=== PATIENT | female | born 1965 | race Hispanic/Latino ===

== ENCOUNTER 2025-04-29 17:48 | Inpatient (IN) | payer OTHER ==
[~2025-04-29 17:48] MED LIST: Iopamidol-370 76% 500 ML MDV (1 ML CHARGE) ONE
[2025-04-29 19:50] LABS: #Basophils 0.03 10x3/uL (0.0-0.2); #Eosinophils 0.10 10x3/uL (0.0-0.7); #Monocytes 1.21 10x3/uL (0.11-0.59); #Neutrophils 5.93 10x3/uL (1.40-6.50); %Basophils 0.3 % (0.0-1.0); %Eosinophils 0.9 % (0.0-10.0); %Lymphocytes 32.0 % (21.0-51.0); %Monocytes 11.1 % (0.0-10.0); %Neutrophils 54.5 % (42.0-75.0); Hematocrit 42.2 % (36.0-47.0); Hemoglobin 14.0 g/dL (12.0-16.0); Mean Corpuscular Hemoglobin 29.6 pg (27.0-31.0); Mean Corpuscular Volume 89.2 fL (78.0-98.0); Platelet Count 336 10x3/uL (130-400); Red Blood Cell (RBC) Count 4.73 mill/uL (4.20-5.40); White Blood Cell (WBC) Count 10.88 10x3/uL (4.8-10.8)
[2025-04-29 20:03] LABS: INR-International Normal Ratio 1.1; PTT 35.6 sec (22.9-36.1); Prothrombin Time 14.4 sec (12.0-14.7)
[2025-04-29 20:09] LABS: ALT (SGPT) 13 U/L (Less than 34); AST (SGOT) 25 U/L (11-34); Albumin 3.3 g/dL (3.1-4.5); Alkaline Phosphatase 177 U/L (40-110); Anion Gap 16 mmol/L (10-20); BUN (Urea Nitrogen) 15 mg/dL (9.8-20.1); Bilirubin, Total 0.4 mg/dL (0.3-1.2); Calc. Creatinine Clearance 0 mL/min (70-130); Calcium 9.5 mg/dL (7.8-10.44); Carbon Dioxide 24 mmol/L (22-29); Chloride 98 mmol/L (98-107); Globulin 4.4 g/dL (2.4-3.5); Glucose 228 mg/dL (70-105); Potassium 4.0 mmol/L (3.5-5.1); Sodium 134 mmol/L (136-145)
[2025-04-29] MEDS: Vancomycin 1 GM in Premix 1 BAG IVPB SCH (23:53)
[2025-04-29 23:54] VITALS: BMI 35.8
[2025-04-30] MEDS ORDERED: Glucagon 1 MG/ML KIT IM PRN (00:20)
[2025-04-30] MEDS ORDERED: Dextrose 50% Abboject 50 ML SYRINGE SLOW IVP PRN (00:20)
[2025-04-30] MEDS ORDERED: Acetaminophen 325 MG TAB PO PRN (00:20)
[2025-04-30] MEDS: Insulin Glargine 30 UNITS/0.3 ML VIAL SC SCH ×2 (01:21→19:43)
[2025-04-30] MEDS: Ketorolac Tromethamine 30 MG (1 mL) VIAL IVP PRN (01:21)
[2025-04-30] MEDS: Acetaminophen 325 MG TAB PO PRN (02:17)
[2025-04-30] MEDS: Melatonin 3 MG TAB PO PRN (02:17)
[2025-04-30 06:10] LABS: #Basophils 0.04 10x3/uL (0.0-0.2); #Eosinophils 0.11 10x3/uL (0.0-0.7); #Monocytes 1.23 10x3/uL (0.11-0.59); #Neutrophils 3.90 10x3/uL (1.40-6.50); %Basophils 0.5 % (0.0-1.0); %Eosinophils 1.3 % (0.0-10.0); %Lymphocytes 38.8 % (21.0-51.0); %Monocytes 14.0 % (0.0-10.0); %Neutrophils 44.1 % (42.0-75.0); Hematocrit 38.2 % (36.0-47.0); Hemoglobin 12.2 g/dL (12.0-16.0); Mean Corpuscular Hemoglobin 28.8 pg (27.0-31.0); Mean Corpuscular Volume 90.3 fL (78.0-98.0); Platelet Count 292 10x3/uL (130-400); Red Blood Cell (RBC) Count 4.23 mill/uL (4.20-5.40); White Blood Cell (WBC) Count 8.80 10x3/uL (4.8-10.8)
[2025-04-30 06:32] LABS: ALT (SGPT) 12 U/L (Less than 34); AST (SGOT) 18 U/L (11-34); Albumin 2.8 g/dL (3.1-4.5); Alkaline Phosphatase 164 U/L (40-110); Anion Gap 15 mmol/L (10-20); BUN (Urea Nitrogen) 13 mg/dL (9.8-20.1); Bilirubin, Total 0.4 mg/dL (0.3-1.2); Calc. Creatinine Clearance 119 mL/min (70-130); Calcium 8.6 mg/dL (7.8-10.44); Carbon Dioxide 23 mmol/L (22-29); Chloride 101 mmol/L (98-107); Globulin 3.6 g/dL (2.4-3.5); Glucose 200 mg/dL (70-105); Potassium 3.7 mmol/L (3.5-5.1); Sodium 135 mmol/L (136-145)
[2025-04-30] MEDS ORDERED: Albuterol 200 PUFF (6.7GM INHALER) INH PRN (11:28)
[2025-04-30] MEDS ORDERED: Mometasone 100 MCG/Formoterol 5 MCG 120 PUFF INHALER INH PRN (11:47)
[2025-04-30] MEDS: Carvedilol 3.125 MG TAB PO SCH (17:47)
[2025-04-30] MEDS: Ibuprofen 800 MG TAB PO PRN (19:42)
[2025-04-30] MEDS: Pregabalin 50 MG CAP PO SCH (19:43)
[2025-05-01 05:53] LABS: #Basophils 0.04 10x3/uL (0.0-0.2); #Eosinophils 0.08 10x3/uL (0.0-0.7); #Monocytes 1.23 10x3/uL (0.11-0.59); #Neutrophils 4.46 10x3/uL (1.40-6.50); %Basophils 0.4 % (0.0-1.0); %Eosinophils 0.9 % (0.0-10.0); %Lymphocytes 33.6 % (21.0-51.0); %Monocytes 13.8 % (0.0-10.0); %Neutrophils 50.3 % (42.0-75.0); Hematocrit 39.1 % (36.0-47.0); Hemoglobin 12.7 g/dL (12.0-16.0); Mean Corpuscular Hemoglobin 28.9 pg (27.0-31.0); Mean Corpuscular Volume 89.1 fL (78.0-98.0); Platelet Count 317 10x3/uL (130-400); Red Blood Cell (RBC) Count 4.39 mill/uL (4.20-5.40); White Blood Cell (WBC) Count 8.89 10x3/uL (4.8-10.8)
[2025-05-01 06:10] LABS: ALT (SGPT) 12 U/L (Less than 34); AST (SGOT) 22 U/L (11-34); Albumin 2.8 g/dL (3.1-4.5); Alkaline Phosphatase 149 U/L (40-110); Anion Gap 12 mmol/L (10-20); BUN (Urea Nitrogen) Less than 4 mg/dL (9.8-20.1); Bilirubin, Total 0.5 mg/dL (0.3-1.2); Calc. Creatinine Clearance 155 mL/min (70-130); Calcium 8.8 mg/dL (7.8-10.44); Carbon Dioxide 25 mmol/L (22-29); Chloride 103 mmol/L (98-107); Globulin 3.9 g/dL (2.4-3.5); Glucose 156 mg/dL (70-105); Potassium 4.0 mmol/L (3.5-5.1); Sodium 136 mmol/L (136-145)
[2025-05-01 08:00] VITALS: TEMP 97.9
[2025-05-01] MEDS ORDERED: HYDROcodone/Acetaminophen 10/325 mg Tablet PO PRN (08:37)
[2025-05-01] MEDS: Pantoprazole 40 MG DR.TAB PO SCH (09:09)
[2025-05-01] MEDS: Enoxaparin 40 MG (0.4 mL) SYRINGE SC SCH (09:11)
[2025-05-01 09:13] VITALS: BP 121/66
[2025-05-01] MEDS ORDERED: Insulin Glargine 30 UNITS/0.3 ML VIAL SC SCH (21:00)
[2025-05-03] MEDS ORDERED: PNEUMOC 20-VAL CONJ-DIP CRM/PF 0.5 ML SYRINGE IM ONE (09:00)
== END 2025-05-01 13:05 | disposition home or self-care (01) | DRG 300 ==
LOC: ERS 17:48 → T4-A 23:05 → OBSVTOIN 04-30 16:37
PROVIDERS: ADMIT Family Medicine; ATTEND Family Medicine
DX: E11.51 Type 2 diabetes mellitus with diabetic peripheral angiopathy without gangrene (principal); L03.115 Cellulitis of right lower limb; M79.671 Pain in right foot; I25.10 Atherosclerotic heart disease of native coronary artery without angina pectoris; I10 Essential (primary) hypertension; E78.5 Hyperlipidemia, unspecified; F31.9 Bipolar disorder, unspecified; F17.210 Nicotine dependence, cigarettes, uncomplicated; S90.31XA Contusion of right foot, initial encounter; E11.621 Type 2 diabetes mellitus with foot ulcer; L97.519 Non-pressure chronic ulcer of other part of right foot with unspecified severity; K76.0 Fatty (change of) liver, not elsewhere classified; I25.2 Old myocardial infarction; Z95.1 Presence of aortocoronary bypass graft; Z98.890 Other specified postprocedural states; Z91.048 Other nonmedicinal substance allergy status; Z88.1 Allergy status to other antibiotic agents; Z88.8 Allergy status to other drugs, medicaments and biological substances; Z79.4 Long term (current) use of insulin
CPT/HCPCS: 36415; 36416; 71045; 75635; 80053; 83036; 83605; 85025; 85610; 85730; 86141; 93005; 96365; 96367; 96375; 96376; G0378; J1650; J1815; J1885; J2270; J2543; J3373; Q9967

== ENCOUNTER 2025-05-18 18:40 | Inpatient (IN) | payer OTHER ==
[~2025-05-18 18:40] MED LIST changes: +Iopamidol 370 76% 100 ML VIAL ONE; -Iopamidol-370 76% 500 ML MDV (1 ML CHARGE) ONE
[2025-05-18 20:22] LABS: #Basophils 0.03 10x3/uL (0.0-0.2); #Eosinophils 0.12 10x3/uL (0.0-0.7); #Monocytes 1.05 10x3/uL (0.11-0.59); #Neutrophils 7.78 10x3/uL (1.40-6.50); %Basophils 0.3 % (0.0-1.0); %Eosinophils 1.1 % (0.0-10.0); %Lymphocytes 19.8 % (21.0-51.0); %Monocytes 9.2 % (0.0-10.0); %Neutrophils 68.3 % (42.0-75.0); Hematocrit 39.1 % (36.0-47.0); Hemoglobin 12.7 g/dL (12.0-16.0); Mean Corpuscular Hemoglobin 28.9 pg (27.0-31.0); Mean Corpuscular Volume 89.1 fL (78.0-98.0); Platelet Count 402 10x3/uL (130-400); Red Blood Cell (RBC) Count 4.39 mill/uL (4.20-5.40); White Blood Cell (WBC) Count 11.38 10x3/uL (4.8-10.8)
[2025-05-18 21:05] LABS: ALT (SGPT) 12 U/L (Less than 34); AST (SGOT) 20 U/L (11-34); Albumin 3.2 g/dL (3.1-4.5); Alkaline Phosphatase 180 U/L (40-110); Anion Gap 13 mmol/L (10-20); BUN (Urea Nitrogen) 10 mg/dL (9.8-20.1); Bilirubin, Total 0.3 mg/dL (0.3-1.2); Calc. Creatinine Clearance 0 mL/min (70-130); Calcium 9.6 mg/dL (7.8-10.44); Carbon Dioxide 24 mmol/L (22-29); Chloride 101 mmol/L (98-107); Globulin 4.7 g/dL (2.4-3.5); Glucose 200 mg/dL (70-105); Lipase 25 U/L (8-78); Potassium 4.3 mmol/L (3.5-5.1); Sodium 134 mmol/L (136-145)
[2025-05-18] MEDS ORDERED: Ketorolac Tromethamine 30 MG (1 mL) VIAL ONE (21:45)
[2025-05-18 22:34] LABS: Bacteria/HPF None Seen HPF (None Seen); CAUTI Indications for Culture Fever or rigors; Glucose, Urine (Dipstick) 50 mg/dL (Negative); Leukocyte Negative Leu/uL (Negative); Protein, Urine (Dipstick) Negative (Neg-Trace); RBC/HPF 0-3 HPF (0-3); Specific Gravity, Urine 1.011 (1.002-1.036); WBC/HPF 0-3 HPF (0-3)
[2025-05-18 22:38] LABS: Urine Culture Reflex No No
[2025-05-18] MEDS ORDERED: Dextrose 50% Abboject 50 ML SYRINGE SLOW IVP PRN (22:58)
[2025-05-18] MEDS ORDERED: Glucagon 1 MG/ML KIT IM PRN (22:58)
[2025-05-18] MEDS ORDERED: Acetaminophen 325 MG TAB PO PRN (22:58)
[2025-05-18] MEDS ORDERED: Albuterol 200 PUFF INH INH PRN (23:34)
[2025-05-18] MEDS ORDERED: Mometasone 100 MCG/Formoterol 5 MCG 120 PUFF INHALER INH PRN (23:34)
[2025-05-19 00:24] VITALS: BMI 38.4
[2025-05-19] MEDS: HYDROcodone/Acetaminophen 10/325 mg Tablet PO PRN (00:37)
[2025-05-19] MEDS: Ketorolac Tromethamine 30 MG (1 mL) VIAL IVP PRN (02:45)
[2025-05-19] MEDS: Clindamycin/D5W 600 MG in Premix 1 BAG IVPB SCH (05:33)
[2025-05-19 05:49] LABS: #Basophils Less than 0.03 10x3/uL (0.0-0.2); #Eosinophils 0.12 10x3/uL (0.0-0.7); #Monocytes 1.01 10x3/uL (0.11-0.59); #Neutrophils 5.93 10x3/uL (1.40-6.50); %Basophils 0.2 % (0.0-1.0); %Eosinophils 1.3 % (0.0-10.0); %Lymphocytes 24.1 % (21.0-51.0); %Monocytes 10.7 % (0.0-10.0); %Neutrophils 62.9 % (42.0-75.0); Hematocrit 35.0 % (36.0-47.0); Hemoglobin 11.3 g/dL (12.0-16.0); Mean Corpuscular Hemoglobin 29.0 pg (27.0-31.0); Mean Corpuscular Volume 90.0 fL (78.0-98.0); Platelet Count 360 10x3/uL (130-400); Red Blood Cell (RBC) Count 3.89 mill/uL (4.20-5.40); White Blood Cell (WBC) Count 9.43 10x3/uL (4.8-10.8)
[2025-05-19] MEDS: Transdermal Patch Removal TOP SCH (06:15)
[2025-05-19 06:18] LABS: ALT (SGPT) 8 U/L (Less than 34); AST (SGOT) 21 U/L (11-34); Albumin 2.8 g/dL (3.1-4.5); Alkaline Phosphatase 139 U/L (40-110); Anion Gap 15 mmol/L (10-20); BUN (Urea Nitrogen) 8 mg/dL (9.8-20.1); Bilirubin, Total 0.3 mg/dL (0.3-1.2); Calc. Creatinine Clearance 158 mL/min (70-130); Calcium 9.3 mg/dL (7.8-10.44); Carbon Dioxide 25 mmol/L (22-29); Chloride 103 mmol/L (98-107); Globulin 4.4 g/dL (2.4-3.5); Glucose 175 mg/dL (70-105); Potassium 4.1 mmol/L (3.5-5.1); Sodium 139 mmol/L (136-145)
[2025-05-19] MEDS ORDERED: metFORMIN 500 MG TAB PO SCH (08:00)
[2025-05-19] MEDS: Carvedilol 3.125 MG TAB PO SCH (08:48)
[2025-05-19] MEDS: Pantoprazole 40 MG DR.TAB PO SCH (08:48)
[2025-05-19] MEDS ORDERED: fentaNYL PF 100 MCG/2 ML SYRINGE ONE (14:50)
[2025-05-19] MEDS ORDERED: PROPOFOL 20 ML ONE (14:50)
[2025-05-19] MEDS ORDERED: Ondansetron PF 4 MG/2 ML Vial ONE (14:53)
[2025-05-19] MEDS ORDERED: HYDROmorphone 2 MG/ML VIAL ONE (14:54)
[2025-05-19] MEDS ORDERED: diphenhydrAMINE 50 MG/ML VIAL ONE (15:26)
[2025-05-19] MEDS: Insulin Glargine 30 UNITS/0.3 ML VIAL SC SCH (20:09)
[2025-05-19] MEDS ORDERED: Acetaminophen 325 MG TAB PO SCH ×3 (20:15→23:59)
[2025-05-19] MEDS: ALPRAZolam 0.5 MG TAB PO SCH (21:40)
[2025-05-19] MEDS: Acetaminophen 500 MG TAB PO SCH (21:43)
[2025-05-20] MEDS: Cyclobenzaprine 10 MG TAB PO SCH (00:21)
[2025-05-20] MEDS: Melatonin 3 MG TAB PO PRN (00:25)
[2025-05-20] MEDS: Lidocaine 2% 6 ML (Jelly) SYR TOP PRN (05:23)
[2025-05-20 05:46] LABS: #Basophils 0.04 10x3/uL (0.0-0.2); #Eosinophils 0.16 10x3/uL (0.0-0.7); #Monocytes 1.10 10x3/uL (0.11-0.59); #Neutrophils 5.14 10x3/uL (1.40-6.50); %Basophils 0.4 % (0.0-1.0); %Eosinophils 1.8 % (0.0-10.0); %Lymphocytes 26.8 % (21.0-51.0); %Monocytes 12.3 % (0.0-10.0); %Neutrophils 57.3 % (42.0-75.0); Hematocrit 34.8 % (36.0-47.0); Hemoglobin 11.0 g/dL (12.0-16.0); Mean Corpuscular Hemoglobin 28.7 pg (27.0-31.0); Mean Corpuscular Volume 90.9 fL (78.0-98.0); Platelet Count 369 10x3/uL (130-400); Red Blood Cell (RBC) Count 3.83 mill/uL (4.20-5.40); White Blood Cell (WBC) Count 8.97 10x3/uL (4.8-10.8)
[2025-05-20 06:22] LABS: ALT (SGPT) 15 U/L (Less than 34); AST (SGOT) 37 U/L (11-34); Albumin 2.7 g/dL (3.1-4.5); Alkaline Phosphatase 121 U/L (40-110); Anion Gap 14 mmol/L (10-20); BUN (Urea Nitrogen) 9 mg/dL (9.8-20.1); Bilirubin, Total 0.4 mg/dL (0.3-1.2); Calc. Creatinine Clearance 121 mL/min (70-130); Calcium 9.1 mg/dL (7.8-10.44); Carbon Dioxide 25 mmol/L (22-29); Chloride 103 mmol/L (98-107); Globulin 4.7 g/dL (2.4-3.5); Glucose 128 mg/dL (70-105); Potassium 5.0 mmol/L (3.5-5.1); Sodium 137 mmol/L (136-145)
[2025-05-20] MEDS ORDERED: FLU (Fluarix Triv) 25-26 (6MOS UP)/PF 45 MCG/0.5 ML Syringe IM ONE (09:00)
[2025-05-20] MEDS ORDERED: PNEUMOC 20-VAL CONJ-DIP CRM/PF 0.5 ML SYRINGE IM ONE (09:00)
[2025-05-20] MEDS: Cyclobenzaprine 10 MG TAB PO PRN (10:30)
[2025-05-20 22:43] VITALS: BP 131/75; TEMP 98.4
== END 2025-05-20 17:19 | disposition home or self-care (01) | DRG 240 ==
LOC: ERS 18:40 → T4-A 22:58 → OBSVTOIN 05-19 17:07
PROVIDERS: ADMIT Student in an Organized Health Care Education/Training Program; ATTEND Student in an Organized Health Care Education/Training Program
PROC: 0Y6M0Z9 Detachment at Right Foot, Partial 1st Ray, Open Approach (ICD-10-PCS; principal; 2025-05-19)
PROC: 3E03329 Introduction of Other Anti-infective into Peripheral Vein, Percutaneous Approach (ICD-10-PCS; 2025-05-19)
DX: E11.52 Type 2 diabetes mellitus with diabetic peripheral angiopathy with gangrene (principal); E87.1 Hypo-osmolality and hyponatremia; M86.9 Osteomyelitis, unspecified; I25.10 Atherosclerotic heart disease of native coronary artery without angina pectoris; I10 Essential (primary) hypertension; F32.A Depression, unspecified; F17.210 Nicotine dependence, cigarettes, uncomplicated; I73.9 Peripheral vascular disease, unspecified; D75.839 Thrombocytosis, unspecified; D72.829 Elevated white blood cell count, unspecified; Z88.8 Allergy status to other drugs, medicaments and biological substances; Z88.1 Allergy status to other antibiotic agents; Z90.710 Acquired absence of both cervix and uterus; Z95.1 Presence of aortocoronary bypass graft; Z90.49 Acquired absence of other specified parts of digestive tract; Z98.890 Other specified postprocedural states; Z79.52 Long term (current) use of systemic steroids; Z79.82 Long term (current) use of aspirin; Z79.899 Other long term (current) drug therapy; Z79.84 Long term (current) use of oral hypoglycemic drugs; Z79.4 Long term (current) use of insulin
CPT/HCPCS: 36415; 36416; 80053; 81001; 83690; 85025; 87040; 88305; 88311; 96365; 96375; 96376; 97139; G0378; J0665; J1100; J1171; J1200; J1815; J1885; J2270; J2272; J2543; J2704; J3490; Q9967

== ENCOUNTER 2025-06-28 21:35 | Emergency (ER) | payer OTHER ==
[2025-06-28 22:05] LABS: #Basophils 0.04 10x3/uL (0.0-0.2); #Eosinophils 0.12 10x3/uL (0.0-0.7); #Monocytes 0.74 10x3/uL (0.11-0.59); #Neutrophils 3.86 10x3/uL (1.40-6.50); %Basophils 0.5 % (0.0-1.0); %Eosinophils 1.4 % (0.0-10.0); %Lymphocytes 43.6 % (21.0-51.0); %Monocytes 8.6 % (0.0-10.0); %Neutrophils 44.5 % (42.0-75.0); Hematocrit 34.0 % (36.0-47.0); Hemoglobin 11.2 g/dL (12.0-16.0); Mean Corpuscular Hemoglobin 29.7 pg (27.0-31.0); Mean Corpuscular Volume 90.2 fL (78.0-98.0); Platelet Count 286 10x3/uL (130-400); Red Blood Cell (RBC) Count 3.77 mill/uL (4.20-5.40); White Blood Cell (WBC) Count 8.65 10x3/uL (4.8-10.8)
[2025-06-28 22:22] LABS: ALT (SGPT) 11 U/L (Less than 34); AST (SGOT) 20 U/L (11-34); Albumin 3.1 g/dL (3.1-4.5); Alkaline Phosphatase 174 U/L (40-110); Anion Gap 12 mmol/L (10-20); BUN (Urea Nitrogen) 18 mg/dL (9.8-20.1); Bilirubin, Total 0.2 mg/dL (0.3-1.2); Calc. Creatinine Clearance 0 mL/min (70-130); Calcium 8.5 mg/dL (7.8-10.44); Carbon Dioxide 24 mmol/L (22-29); Chloride 103 mmol/L (98-107); Globulin 3.4 g/dL (2.4-3.5); Glucose 330 mg/dL (70-105); Potassium 4.3 mmol/L (3.5-5.1); Sodium 135 mmol/L (136-145)
[2025-06-28] MEDS ORDERED: Acetaminophen 500 MG TAB ONE (22:33)
[2025-06-28] MEDS ORDERED: diphenhydrAMINE 50 MG/ML VIAL ONE (22:33)
[2025-06-28] MEDS ORDERED: Metoclopramide HCl 10 MG (2 mL) VIAL ONE (22:33)
== END 2025-06-29 00:05 | disposition home or self-care (01) ==
LOC: ERS 21:35
DX: R07.9 Chest pain, unspecified (principal); I25.2 Old myocardial infarction; E11.9 Type 2 diabetes mellitus without complications; I25.10 Atherosclerotic heart disease of native coronary artery without angina pectoris; I10 Essential (primary) hypertension; F17.210 Nicotine dependence, cigarettes, uncomplicated
CPT/HCPCS: 71045; 80053; 83690; 83880; 84484; 85025; 93005; 94760; 96365; 96375; J1200; J2765

== ENCOUNTER 2025-07-16 12:27 | Outpatient (CLI) | payer OTHER | END 2025-07-16 12:28 | disposition home or self-care (01) | LOC: RAD 12:27 | PROVIDERS: ATTEND Surgery | DX: M17.11 Unilateral primary osteoarthritis, right knee (principal) ==

== ENCOUNTER 2025-07-21 19:19 | Emergency (ER) | payer OTHER | END 2025-07-21 19:39 | disposition left against medical advice (07) | LOC: ERS 19:19 | DX: Z53.21 Procedure and treatment not carried out due to patient leaving prior to being seen by health care provider (principal) | CPT/HCPCS: 71045; 93005 ==